=== PATIENT | male | born 1955 | race African-American/Black ===

== ENCOUNTER 2017-02-05 17:18 | Emergency (ER) | payer SELFPAY ==
[~2017-02-05] VITALS: Ht 175.3 cm; Wt 99.8 kg
[2017-02-05 18:30] VITALS: BP 185/103
[2017-02-05] MEDS ORDERED: MORP15TA PO (18:37)
--- NOTE | 2017-02-05 18:39 | PHYS DOC ---
Past Medical History Past Medical History: Asthma, Diabetes-Type II, Hypertension Past Surgical History: Cholecystectomy Additional Past Surgical Histo: PELVIS REPLACEMENT Additional Information: 1 CIG/ EVERY 4-5 DAYS Alcohol Use: Occasionally Additional Information: 2-3 BEERS/ 2-3 DAYS Drug Use: None Adult General Chief Complaint Chief Complaint: LOWER EXTREMITY SWELLING HPI HPI 61-year-old gentleman presenting to the emergency department today with pain in his left lower extremity after sustaining a fall 1 week ago and sustaining abrasions to the left leg. He has a history of type 2 diabetes and has over the past week noticed poor wound healing. He also notices mild swelling in his leg. He has pain around the wound that is sharp moderate nonradiating without alleviating factors. He also reports running out of his blood pressure medications. He has chronic high blood pressure. He denies chest pain or shortness of breath. Review of systems is negative for fevers chills nausea vomiting or rash. All other review of systems is negative unless otherwise noted in history of present illness. Review of Systems Review of Systems SEE ABOVE. Allergies Allergies Allergies Coded Allergies Type Severity Reaction Last Updated Verified aspirin Adverse Reaction Mild Nausea 02/05/17 Yes Physical Exam Physical Exam Constitutional: Well developed, well nourished, no acute distress, non-toxic appearance. HENT: Normocephalic, atraumatic, bilateral external ears normal, oropharynx moist, no oral exudates, nose normal. [] Eyes: PERRLA, EOMI, conjunctiva normal, no discharge. Neck: Normal range of motion, no tenderness, supple, no stridor. [] Cardiovascular:Heart rate regular rhythm, no murmur Lungs & Thorax: Bilateral breath sounds clear to auscultation [] Abdomen: Bowel sounds normal, soft, no tenderness, no masses, no pulsatile masses. Skin: Warm, dry, no erythema, no rash. [] Back: No tenderness, no CVA tenderness. [] Extremities: The patient's left lower extremity is warm and well perfused with a palpable pulse. There is mild swelling in the left lower extremity. Normal neurovascular status present. The patient has an abrasion/injury to the anterior masterson area without any associated cellulitis. It is not more warm to touch when compared to the other leg. Neurologic: Alert and oriented X 3, normal motor function, normal sensory function, no focal deficits noted. Psychologic: Affect normal, judgement normal, mood normal. [] Current Patient Data Vital Signs Vital Signs Date Time Temp Pulse Resp B/P Pulse Ox O2 Delivery O2 Flow Rate FiO2 02/05/17 17:46 98.2 81 22 206/104 100 Room Air 98.2 EKG EKG [] Radiology/Procedures Radiology/Procedures [] Course & Med Decision Making Course & Med Decision Making Pertinent Labs and Imaging studies reviewed. (See chart for details) [] 61-year-old gentleman presenting to the emergency department today with an injury to the patient's left lower extremity. Given his history of type 2 diabetes he has had poor wound healing however has been keeping the wound clean and dry. Vital signs showed the patient had significant hypertension which is reportedly chronic. I recommended the patient follow up with his doctor for his hypertension. He denied any evidence of end organ damage or dysfunction. He denied vision changes shortness of breath chest pain or oliguria. I recommended the patient follow up with our wound care clinic for good wound care. At this point in time, the patient does not have clinical evidence of cellulitis I do not feel that antibiotics are appropriate, given the possible harm that they could cause. I offered to take x-rays of the patient's lower extremity however the patient stated "I know I didn't break my bone." Based on the mechanism of action I think this to be less likely as well. The patient's tetanus was updated. The patient was in discharged home to follow-up with his primary care physician over the next day or 2 for blood pressure management and chronic medical condition care. I also recommended he follow up with the wound care clinic over the next day or 2 for chronic wound management and care. Dragon Disclaimer Dragon Disclaimer This electronic medical record was generated, in whole or in part, using a voice recognition dictation system. Departure Departure Impression: Primary Impression: Abrasion of left lower extremity Additional Impressions: Type 2 diabetes mellitus Hypertension Disposition: 01 HOME, SELF-CARE Condition: STABLE Referrals: NO PCP (PCP) SHAYLEE BEVERLY MD Patient Instructions: Abrasions, Diabetes and Foot Care Additional Instructions: Thank you for allowing us to participate in your care today. Follow-up with the wound care clinic in the next day or 2 for good wound care of the abrasion/wound. Followup with your primary care physician in 2-3 days for chronic medical conditions.. If you do not have a primary care provider you can ask for a list of our primary care providers. Return to the emergency department you have any new or concerning findings. This should be evaluated by the primary care physician and any necessary consulting services for continued management within a few days after discharge. Return to emergency room if you have any new or concerning symptoms including but not limited to fever, chills, nausea, vomiting, intractable pain, any new rashes, chest pain, shortness of air, uncontrolled bleeding, difficulty breathing, and/or vision loss. You may have been prescribed medication that can change in your level of thinking and ability to operate machinery. These medications include hydrocodone and Ativan. Also, Benadryl has been known to do this as well. Be sure to check with your pharmacist and ask if the medications you've prescribed can affect your level of consciousness. I recommend not operating heavy machinery or driving while on medication such as these. Scripts Morphine Sulfate 15 Mg Tablet1 Tab PO PRN Q6-8HRS PRN SEVERE PAIN #8 TAB Prov:HERACLIO BAUM MD 02/05/17 Problem Qualifiers Primary Impression: Abrasion of left lower extremity Encounter type: initial encounter Qualified Code: S80.812A - Abrasion, left lower leg, initial encounter HERACLIO BAUM MD Feb 05, 2017 18:39
[2017-02-05] MEDS ORDERED: DIPHTH,PERTUSS(ACELL),TET TOX 0.5 ML DISP.SYRIN. VAX IM ONE (18:45)
== END 2017-02-05 18:59 | disposition home or self-care (01) ==
LOC: ER 17:18
DX: S80.812A Abrasion, left lower leg, initial encounter (principal); I10 Essential (primary) hypertension; E11.9 Type 2 diabetes mellitus without complications; J45.909 Unspecified asthma, uncomplicated; F17.210 Nicotine dependence, cigarettes, uncomplicated; Z90.49 Acquired absence of other specified parts of digestive tract; Z98.890 Other specified postprocedural states; Z88.6 Allergy status to analgesic agent; W18.39XA Other fall on same level, initial encounter; Y93.89 Activity, other specified; Y99.8 Other external cause status; Y92.89 Other specified places as the place of occurrence of the external cause
CPT/HCPCS: 99284

== ENCOUNTER 2017-10-24 14:36 | Emergency (ER) | payer OTHER ==
[2017-10-24 15:37] LABS: ADD MAN DIFF? NO
[2017-10-24 15:41] LABS: BASO % 1 % (0-3); EOS # 0.1 x10^3/uL (0.0-0.7); EOS % 5 % (0-3); HEMATOCRIT 27.8 % (39.0-53.0); HEMOGLOBIN 9.1 g/dL (13.0-17.5); LYMPH # 0.4 x10^3/uL (1.0-4.8); LYMPH % 15 % (24-48); MEAN CORPUSCULAR HEMOGLOBIN 27 pg (25-35); MEAN CORPUSCULAR HGB CONC 33 g/dL (31-37); MEAN CORPUSCULAR VOLUME 84 fL (79-100); MONO # 0.4 x10^3/uL (0.0-1.1); MONO % 15 % (0-9); NEUT # 1.8 x10^3uL (1.8-7.7); NEUT % 64 % (31-73); PLATELET COUNT 101 x10^3/uL (140-400); RED BLOOD COUNT 3.33 x10^6/uL (4.30-5.70); RED CELL DISTRIBUTION WIDTH 15.6 % (11.5-14.5); WHITE BLOOD COUNT 2.8 x10^3/uL (4.0-11.0)
[2017-10-24 15:54] LABS: INR 1.2 (0.8-1.1); PARTIAL THROMBOPLASTIN TIME 30 SEC (24-38); PROTHROMBIN TIME PATIENT 14.2 SEC (11.7-14.0)
[2017-10-24 16:04] LABS: TROPONINI 0.027 ng/mL (0.000-0.055)
[2017-10-24 16:08] LABS: NT-PRO BNP 1892 pg/mL (0-124)
[2017-10-24 16:29] LABS: AMMONIA 88 mcmol/L (11-34)
[2017-10-24 16:29] LABS: ANION GAP 16 (6-14); BLOOD UREA NITROGEN 49 mg/dL (8-26); BUN/CREATININE RATIO 18 (6-20); CALCIUM 8.3 mg/dL (8.5-10.1); CARBON DIOXIDE 16 mmol/L (21-32); CHLORIDE 107 mmol/L (98-107); CREATININE 2.7 mg/dL (0.7-1.3); GFR 29.3; GLUCOSE 101 mg/dL (70-99); POTASSIUM 3.8 mmol/L (3.5-5.1); SODIUM 139 mmol/L (136-145)
[2017-10-24 16:35] LABS: ALBUMIN 2.9 g/dL (3.4-5.0); ALBUMIN/GLOBULIN RATIO 0.6 (1.0-1.7); ALK PHOS 75 U/L (46-116); ALT (SGPT) 40 U/L (16-63); AST (SGOT) 57 U/L (15-37); LIPASE 180 U/L (73-393); TOTAL BILIRUBIN 0.6 mg/dL (0.2-1.0); TOTAL PROTEIN 7.4 g/dL (6.4-8.2)
== END 2017-10-24 21:22 | disposition other institution (70) ==
LOC: ER 21:22 → 4 NORTH 16:27 → ER 16:58
DX: R18.8 Other ascites (principal); I10 Essential (primary) hypertension; D64.9 Anemia, unspecified; K76.9 Liver disease, unspecified; N17.9 Acute kidney failure, unspecified; J45.909 Unspecified asthma, uncomplicated; E11.9 Type 2 diabetes mellitus without complications; F14.10 Cocaine abuse, uncomplicated; M79.89 Other specified soft tissue disorders; E66.9 Obesity, unspecified; Z88.6 Allergy status to analgesic agent; Z68.31 Body mass index [BMI] 31.0-31.9, adult; Z90.49 Acquired absence of other specified parts of digestive tract
CPT/HCPCS: 71045; 80053; 82140; 83690; 83880; 84484; 85025; 85610; 85730; 99285-25

== ENCOUNTER 2017-10-28 19:25 | Inpatient (IN) | payer OTHER ==
[2017-10-28 20:19] LABS: ADD MAN DIFF? NO
[2017-10-28 20:26] LABS: BASO % 1 % (0-3); EOS # 0.2 x10^3/uL (0.0-0.7); EOS % 7 % (0-3); LYMPH # 0.8 x10^3/uL (1.0-4.8); LYMPH % 24 % (24-48); MEAN CORPUSCULAR HEMOGLOBIN 27 pg (25-35); MEAN CORPUSCULAR HGB CONC 32 g/dL (31-37); MEAN CORPUSCULAR VOLUME 84 fL (79-100); MONO # 0.2 x10^3/uL (0.0-1.1); MONO % 8 % (0-9); NEUT # 1.9 x10^3uL (1.8-7.7); NEUT % 60 % (31-73); PLATELET COUNT 140 x10^3/uL (140-400); RED BLOOD COUNT 3.69 x10^6/uL (4.30-5.70); WHITE BLOOD COUNT 3.1 x10^3/uL (4.0-11.0)
[2017-10-28 20:34] LABS: ANION GAP 14 (6-14); BLOOD UREA NITROGEN 44 mg/dL (8-26); BUN/CREATININE RATIO 17 (6-20); CALCIUM 8.4 mg/dL (8.5-10.1); CARBON DIOXIDE 18 mmol/L (21-32); CHLORIDE 108 mmol/L (98-107); CREATININE 2.6 mg/dL (0.7-1.3); GFR 30.6; GLUCOSE 189 mg/dL (70-99); POTASSIUM 4.5 mmol/L (3.5-5.1); SODIUM 140 mmol/L (136-145)
[2017-10-28 20:41] LABS: ALBUMIN 2.9 g/dL (3.4-5.0); ALBUMIN/GLOBULIN RATIO 0.6 (1.0-1.7); ALK PHOS 96 U/L (46-116); ALT (SGPT) 38 U/L (16-63); AST (SGOT) 51 U/L (15-37); LIPASE 260 U/L (73-393); TOTAL BILIRUBIN 0.3 mg/dL (0.2-1.0); TOTAL PROTEIN 7.5 g/dL (6.4-8.2)
[2017-10-28 20:42] LABS: INR 1.1 (0.8-1.1); PROTHROMBIN TIME PATIENT 13.6 SEC (11.7-14.0)
[2017-10-28 20:52] LABS: LACTIC ACID 1.7 mmol/L (0.4-2.0)
[2017-10-28] MEDS: fentaNYL PF VIAL 100 MCG/2 ML VIAL IV (23:14)
[2017-10-28] MEDS: ONDANSETRON PF 4 MG/2 ML VIAL. IV (23:16)
[2017-10-29 05:51] LABS: ADD MAN DIFF? NO
[2017-10-29 05:55] LABS: BASO % 0 % (0-3); EOS # 0.2 x10^3/uL (0.0-0.7); EOS % 7 % (0-3); HEMATOCRIT 26.7 % (39.0-53.0); HEMOGLOBIN 8.7 g/dL (13.0-17.5); LYMPH # 0.7 x10^3/uL (1.0-4.8); LYMPH % 22 % (24-48); MEAN CORPUSCULAR HEMOGLOBIN 27 pg (25-35); MEAN CORPUSCULAR HGB CONC 33 g/dL (31-37); MEAN CORPUSCULAR VOLUME 82 fL (79-100); MONO # 0.3 x10^3/uL (0.0-1.1); MONO % 10 % (0-9); NEUT % 61 % (31-73); PLATELET COUNT 117 x10^3/uL (140-400); RED BLOOD COUNT 3.24 x10^6/uL (4.30-5.70); WHITE BLOOD COUNT 3.3 x10^3/uL (4.0-11.0)
[2017-10-29 06:20] LABS: ANION GAP 11 (6-14); BLOOD UREA NITROGEN 43 mg/dL (8-26); CARBON DIOXIDE 19 mmol/L (21-32); CHLORIDE 110 mmol/L (98-107); CREATININE 2.6 mg/dL (0.7-1.3); GFR 30.6; GLUCOSE 192 mg/dL (70-99); SODIUM 140 mmol/L (136-145)
[2017-10-29] MEDS ORDERED: ONDANSETRON PF 4 MG/2 ML VIAL. IV (08:00)
[2017-10-29] MEDS ORDERED: ACETAMINOPHEN 500 MG TABLET PO (08:00)
[2017-10-29] MEDS ORDERED: fentaNYL PF VIAL 100 MCG/2 ML VIAL IV (08:00)
[2017-10-29 08:25] LABS: AMMONIA 108 mcmol/L (11-34)
[2017-10-29] MEDS ORDERED: ALBUMIN HUMAN 25% 200 ML IV (09:07)
[2017-10-29] MEDS: ALBUMIN HUMAN 25% 100 ML IV ×2 (09:45)
[2017-10-29] MEDS: FUROSEMIDE 40 MG TABLET. PO ×2 (10:52→14:00)
[2017-10-29] MEDS: POTASSIUM CHLORIDE 20 MEQ TABLET.ER. PO (10:52)
[2017-10-29] MEDS: amLODIPine BESYLATE 5 MG TABLET PO (10:53)
[2017-10-29] MEDS: SPIRONOLACTONE 25 MG TABLET PO ×2 (10:53→21:27)
[2017-10-29] MEDS: oxyCODONE/APAP 5/325 1 TAB TABLET PO ×2 (10:54→17:15)
[2017-10-29] MEDS: hydrALAZINE 20 MG/ML VIAL. IVP (16:18)
[2017-10-30] MEDS: amLODIPine BESYLATE 5 MG TABLET PO (08:00)
[2017-10-30] MEDS: MORPHINE IR 15 MG TABLET PO (08:00)
[2017-10-30] MEDS: SPIRONOLACTONE 25 MG TABLET PO ×2 (08:00→20:22)
[2017-10-30] MEDS: FUROSEMIDE 40 MG TABLET. PO (08:00)
[2017-10-30] MEDS: POTASSIUM CHLORIDE 20 MEQ TABLET.ER. PO (08:01)
[2017-10-30] MEDS ORDERED: DEXTROSE 50% 25 GM / 50ML DISP.SYRIN. IV (11:45)
[2017-10-30 11:54] LABS: POC GLUCOSE 142 mg/dL (70-99)
[2017-10-30] MEDS: INSULIN ASPART 300 UNITS/3 ML INSULN.PEN SQ ×2 (12:30→17:48)
[2017-10-30] MEDS: FUROSEMIDE 40 MG/4 ML VIAL. IVP ×2 (12:39→21:43)
[2017-10-30 15:57] LABS: POC GLUCOSE 149 mg/dL (70-99)
[2017-10-30] MEDS: ALBUMIN HUMAN 5% 500 ML IV (16:41)
[2017-10-30 17:39] LABS: POC GLUCOSE 171 mg/dL (70-99)
[2017-10-30] MEDS: CALCIUM CARBONATE 500 MG TAB.CHEW PO (17:43)
[2017-10-30 19:16] LABS: AFPT MARKER 6.9 ng/mL (0.0-8.3)
[2017-10-30 21:50] LABS: POC GLUCOSE 133 mg/dL (70-99)
[2017-10-31 04:19] LABS: HEMOGLOBIN A1C 5.9 % (4.8-5.6)
[2017-10-31 05:55] LABS: ANION GAP 12 (6-14); BLOOD UREA NITROGEN 47 mg/dL (8-26); CALCIUM 8.6 mg/dL (8.5-10.1); CARBON DIOXIDE 20 mmol/L (21-32); CHLORIDE 106 mmol/L (98-107); CREATININE 2.9 mg/dL (0.7-1.3); GLUCOSE 123 mg/dL (70-99); POTASSIUM 5.3 mmol/L (3.5-5.1); SODIUM 138 mmol/L (136-145)
[2017-10-31] MEDS: INSULIN ASPART 300 UNITS/3 ML INSULN.PEN SQ ×4 (08:00→17:18)
[2017-10-31] MEDS: SPIRONOLACTONE 25 MG TABLET PO (08:13)
[2017-10-31] MEDS: amLODIPine BESYLATE 5 MG TABLET PO (08:13)
[2017-10-31] MEDS: FUROSEMIDE 40 MG/4 ML VIAL. IVP ×3 (08:14→15:06)
[2017-10-31 08:59] LABS: POC GLUCOSE 144 mg/dL (70-99)
[2017-10-31 11:17] LABS: POC GLUCOSE 163 mg/dL (70-99)
[2017-10-31 16:44] LABS: MISCELLANEOUS SEE SEPARATE REPORT
[2017-10-31 16:58] LABS: POC GLUCOSE 215 mg/dL (70-99)
[2017-10-31 17:21] LABS: BF CLARITY TURBID; BF COLOR YELLOW; BF SOURCE PERITONEAL
[2017-10-31 17:22] LABS: BF MON % 95 %; BF OTHER % 4 %; BF PMN % 1 %; BF RBC COUNT 11010 /cmm; BF WBC COUNT 828 /cmm
[2017-10-31 20:53] LABS: POC GLUCOSE 143 mg/dL (70-99)
[2017-10-31] MEDS: MORPHINE IR 15 MG TABLET PO (21:09)
[2017-11-01 05:59] LABS: ADD MAN DIFF? NO
[2017-11-01 06:12] LABS: BASO % 1 % (0-3); EOS # 0.2 x10^3/uL (0.0-0.7); EOS % 5 % (0-3); HEMATOCRIT 31.6 % (39.0-53.0); HEMOGLOBIN 10.2 g/dL (13.0-17.5); LYMPH # 0.8 x10^3/uL (1.0-4.8); LYMPH % 22 % (24-48); MEAN CORPUSCULAR HEMOGLOBIN 27 pg (25-35); MEAN CORPUSCULAR HGB CONC 32 g/dL (31-37); MEAN CORPUSCULAR VOLUME 84 fL (79-100); MONO # 0.3 x10^3/uL (0.0-1.1); MONO % 10 % (0-9); NEUT # 2.2 x10^3uL (1.8-7.7); NEUT % 62 % (31-73); PLATELET COUNT 136 x10^3/uL (140-400); RED BLOOD COUNT 3.75 x10^6/uL (4.30-5.70); RED CELL DISTRIBUTION WIDTH 15.8 % (11.5-14.5); WHITE BLOOD COUNT 3.5 x10^3/uL (4.0-11.0)
[2017-11-01 06:49] LABS: ALBUMIN 3.2 g/dL (3.4-5.0); ALBUMIN/GLOBULIN RATIO 0.8 (1.0-1.7); ALK PHOS 82 U/L (46-116); ALT (SGPT) 39 U/L (16-63); ANION GAP 12 (6-14); AST (SGOT) 53 U/L (15-37); BLOOD UREA NITROGEN 50 mg/dL (8-26); BUN/CREATININE RATIO 15 (6-20); CALCIUM 8.2 mg/dL (8.5-10.1); CARBON DIOXIDE 23 mmol/L (21-32); CHLORIDE 100 mmol/L (98-107); CREATININE 3.3 mg/dL (0.7-1.3); GFR 23.3; GLUCOSE 160 mg/dL (70-99); POTASSIUM 5.2 mmol/L (3.5-5.1); SODIUM 135 mmol/L (136-145); TOTAL BILIRUBIN 0.5 mg/dL (0.2-1.0); TOTAL PROTEIN 7.4 g/dL (6.4-8.2)
[2017-11-01 08:44] LABS: POC GLUCOSE 183 mg/dL (70-99)
[2017-11-01] MEDS: FUROSEMIDE 40 MG/4 ML VIAL. IVP (09:23)
[2017-11-01] MEDS: amLODIPine BESYLATE 5 MG TABLET PO (09:23)
[2017-11-01] MEDS: INSULIN ASPART 300 UNITS/3 ML INSULN.PEN SQ ×2 (09:33→13:16)
[2017-11-01] MEDS: ALBUMIN HUMAN 5% 500 ML IV (11:33)
[2017-11-01 12:04] LABS: POC GLUCOSE 159 mg/dL (70-99)
[2017-11-01] MEDS: FUROSEMIDE 40 MG TABLET. PO (16:37)
[2017-11-04 13:17] LABS: BF TRIGLYCERIDES 158 mg/dL (.); BODY FLUID AMYLASE 69 U/L (.); BODY FLUID GLUCOSE 150 mg/dL (.)
== END 2017-11-01 17:00 | disposition left against medical advice (07) | DRG 441 ==
LOC: ER 19:25 → 4 NORTH 22:07
PROC: 0W9G3ZZ Drainage of Peritoneal Cavity, Percutaneous Approach (ICD-10-PCS; 2017-10-29)
PROC: 0W9G3ZZ Drainage of Peritoneal Cavity, Percutaneous Approach (ICD-10-PCS; principal; 2017-11-01)
DX: K72.90 Hepatic failure, unspecified without coma (principal); G93.41 Metabolic encephalopathy; R18.8 Other ascites; N17.9 Acute kidney failure, unspecified; D70.9 Neutropenia, unspecified; D69.6 Thrombocytopenia, unspecified; E11.22 Type 2 diabetes mellitus with diabetic chronic kidney disease; N18.4 Chronic kidney disease, stage 4 (severe); E87.5 Hyperkalemia; K74.60 Unspecified cirrhosis of liver; B19.20 Unspecified viral hepatitis C without hepatic coma; D63.8 Anemia in other chronic diseases classified elsewhere; E86.0 Dehydration; F10.20 Alcohol dependence, uncomplicated; I12.9 Hypertensive chronic kidney disease with stage 1 through stage 4 chronic kidney disease, or unspecified chronic kidney disease; J45.909 Unspecified asthma, uncomplicated; Z79.4 Long term (current) use of insulin; Z91.19 Patient's noncompliance with other medical treatment and regimen; F14.90 Cocaine use, unspecified, uncomplicated; K59.00 Constipation, unspecified; Z90.49 Acquired absence of other specified parts of digestive tract; F19.10 Other psychoactive substance abuse, uncomplicated
CPT/HCPCS: 36415; 49083; 74176; 80048; 80053; 82105; 82140; 82150; 82945; 82962; 83036; 83605; 83690; 84157; 84478; 85025; 85610; 89050; 93306; 96365; 96366; 96375; 97161-GP; 97165-GO; 99285; 99285-25; J0360; J0690; J1815; J1940; J2405; J3010; P9045; P9046

== ENCOUNTER 2018-04-23 05:16 | Emergency (ER) | payer OTHER ==
[2018-04-23 06:18] LABS: ADD MAN DIFF? NO
[2018-04-23 06:22] LABS: BASO % 0 % (0-3); EOS # 0.2 x10^3/uL (0.0-0.7); EOS % 4 % (0-3); HEMOGLOBIN 9.6 g/dL (13.0-17.5); LYMPH # 0.6 x10^3/uL (1.0-4.8); LYMPH % 14 % (24-48); MEAN CORPUSCULAR HEMOGLOBIN 26 pg (25-35); MEAN CORPUSCULAR HGB CONC 33 g/dL (31-37); MEAN CORPUSCULAR VOLUME 79 fL (79-100); MONO # 0.5 x10^3/uL (0.0-1.1); MONO % 12 % (0-9); NEUT # 3.1 x10^3uL (1.8-7.7); NEUT % 70 % (31-73); PLATELET COUNT 132 x10^3/uL (140-400); RED BLOOD COUNT 3.65 x10^6/uL (4.30-5.70); RED CELL DISTRIBUTION WIDTH 14.9 % (11.5-14.5); WHITE BLOOD COUNT 4.4 x10^3/uL (4.0-11.0)
[2018-04-23 06:31] LABS: ANION GAP 9 (6-14); BLOOD UREA NITROGEN 37 mg/dL (8-26); BUN/CREATININE RATIO 13 (6-20); CARBON DIOXIDE 19 mmol/L (21-32); CHLORIDE 108 mmol/L (98-107); CREATININE 2.9 mg/dL (0.7-1.3); GFR 26.9; GLUCOSE 146 mg/dL (70-99); POTASSIUM 3.4 mmol/L (3.5-5.1); SODIUM 136 mmol/L (136-145)
[2018-04-23 06:37] LABS: ALBUMIN/GLOBULIN RATIO 0.4 (1.0-1.7); ALK PHOS 76 U/L (46-116); ALT (SGPT) 22 U/L (16-63); AST (SGOT) 35 U/L (15-37); TOTAL BILIRUBIN 0.6 mg/dL (0.2-1.0); TOTAL PROTEIN 6.6 g/dL (6.4-8.2)
[2018-04-23 06:43] LABS: NT-PRO BNP 1235 pg/mL (0-124)
[2018-04-23] MEDS ORDERED: 0.9 % SOD CHL for STERILE FIELD 10 ML DISP.SYRIN. (07:05)
[2018-04-23] MEDS: HEPARIN SODIUM 1,000 UNIT in IV NORMAL SALINE 100ML 100 ML IV (08:15)
[2018-04-23 08:28] LABS: POC GLUCOSE 122 mg/dL (70-99)
== END 2018-04-23 09:26 | disposition left against medical advice (07) ==
LOC: ER 09:26
DX: R18.8 Other ascites (principal); E11.9 Type 2 diabetes mellitus without complications; I10 Essential (primary) hypertension; E11.22 Type 2 diabetes mellitus with diabetic chronic kidney disease; I12.0 Hypertensive chronic kidney disease with stage 5 chronic kidney disease or end stage renal disease; Z90.49 Acquired absence of other specified parts of digestive tract; N18.6 End stage renal disease; Z99.2 Dependence on renal dialysis; Z88.6 Allergy status to analgesic agent
CPT/HCPCS: 36415; 49084; 71045; 80053; 82962; 83880; 85025; 87040; 93005; 99285-25; J1644